=== PATIENT | female | born 1955 | race African-American/Black ===

== ENCOUNTER 2022-11-04 17:16 | Inpatient (IN) | payer OTHER ==
[~2022-11-04] VITALS: Ht 162.6 cm; Wt 73.7 kg
[2022-11-04] MEDS ORDERED: SODIUM CHLORIDE 0.9% 1,000 ML IV ONE (22:45)
[2022-11-04 22:55] LABS: BASOPHILS % 0.4 % (0.0-2.0); EOSINOPHILS % 0.1 % (0.0-5.0); HEMATOCRIT. 40.5 % (36.0-48.0); HEMOGLOBIN. 13.5 g/dL (12.0-16.0); LYMPHOCYTES % 36.6 % (20.0-50.0); MEAN CORPUSCULAR HEMOGLOBIN 27.7 pg (28.0-32.0); MEAN PLATELET VOLUME 9.5 fl (7.4-10.4); MONOCYTES % 6.7 % (2.0-8.0); NEUTROPHILS % 56.2 % (40.0-76.0); PLATELET 206 x1000/uL (130-400); RED BLOOD CELL COUNT 4.88 mill/uL (4.2-5.4); RED CELL DISTRIBUTION WIDTH 14.3 % (11.6-14.6)
[2022-11-04 23:01] LABS: CHLORIDE 102 mEq/L (98-107)
[2022-11-05] MEDS ORDERED: ONDANSETRON HCL 4MG/2ML INJ IV PRN (10:45)
[2022-11-05] MEDS ORDERED: CLONIDINE 0.1MG TABLET PO PRN (10:45)
[2022-11-05] MEDS ORDERED: DOCUSATE SODIUM 100MG CAPSULE PO PRN (10:45)
[2022-11-05] MEDS ORDERED: ACETAMINOPHEN 325MG TABLET PO PRN ×2 (10:45)
[2022-11-05] MEDS: ENOXAPARIN 40MG/0.4ML SYR SUBCUT SCH (11:00)
[2022-11-05 12:00] VITALS: BP 137/74
[2022-11-05] MEDS ORDERED: LOSA1TAB34 MT (12:19)
[2022-11-05] MEDS: MECLIZINE 25MG TABLET PO SCH ×2 (13:44→21:35)
[2022-11-05] MEDS: SODIUM CHLORIDE 0.9% INJ 3ML FLUSH IVF SCH ×2 (13:44→21:35)
[2022-11-05 16:00] VITALS: BP_SYST 121; BP_SYST 130; BP_SYST 141; BP_DIAS 69; BP_DIAS 73; BP_DIAS 82
[2022-11-05 17:07] LABS: CREATINE KINASE MB FRACTION 1.2 ng/mL (0.5-3.6)
[2022-11-05] MEDS ORDERED: LORAZEPAM 1MG TABLET PO NR (17:30)
[2022-11-05] MEDS: SODIUM CHLORIDE 0.9% 1,000 ML IV SCH (17:30)
[2022-11-05 20:00] VITALS: BP_SYST 111; BP_SYST 118; BP_SYST 119; BP_SYST 150; BP_DIAS 68; BP_DIAS 74; BP_DIAS 75; BP_DIAS 91
[2022-11-06] VITALS: BP 103/63
[2022-11-06 04:00] VITALS: BP 131/76
[2022-11-06] MEDS: SODIUM CHLORIDE 0.9% 1,000 ML IV SCH (05:50)
[2022-11-06 06:22] LABS: CHLORIDE 107 mEq/L (98-107)
[2022-11-06] MEDS: MECLIZINE 25MG TABLET PO SCH (06:28)
[2022-11-06] MEDS: SODIUM CHLORIDE 0.9% INJ 3ML FLUSH IVF SCH (06:28)
[2022-11-06 06:38] LABS: BASOPHILS % 0.5 % (0.0-2.0); EOSINOPHILS % 1.8 % (0.0-5.0); HEMATOCRIT. 34.6 % (36.0-48.0); HEMOGLOBIN. 11.6 g/dL (12.0-16.0); LYMPHOCYTES % 52.6 % (20.0-50.0); MEAN CORPUSCULAR HEMOGLOBIN 27.6 pg (28.0-32.0); MEAN CORPUSCULAR VOLUME 82.1 fL (81.0-99.0); MEAN PLATELET VOLUME 9.6 fl (7.4-10.4); MONOCYTES % 8.9 % (2.0-8.0); NEUTROPHILS % 36.2 % (40.0-76.0); PLATELET 174 x1000/uL (130-400); RED BLOOD CELL COUNT 4.22 mill/uL (4.2-5.4)
[2022-11-06 08:00] VITALS: BP_SYST 121; BP_SYST 123; BP_SYST 128; BP_DIAS 77; BP_DIAS 78; BP_DIAS 82
[2022-11-06] MEDS: ENOXAPARIN 40MG/0.4ML SYR SUBCUT SCH (11:00)
[2022-11-06 12:00] VITALS: BP 105/63
[2022-11-06 12:44] LABS: CLARITY URINE CLEAR (CLEAR); COLOR URINE YELLOW (YELLOW); KETONES URINE NEGATIVE (NEGATIVE); LEUKOCYTE ESTERASE URINE TRACE (NEGATIVE); NITRITE URINE POSITIVE (NEGATIVE); OCCULT BLOOD URINE NEGATIVE (NEGATIVE); PH URINE 6.5 (4.5-8.0); PROTEIN URINE NEGATIVE (NEGATIVE); SPECIFIC GRAVITY URINE 1.007 (1.005-1.030); UROBILINOGEN URINE 0.2 E.U./dL (0.2-1.0)
[2022-11-06] MEDS ORDERED: LEVOFLOXACIN 500MG TABLET PO NR (13:00)
[2022-11-06] MEDS ORDERED: LEVO-65 MT (13:00)
== END 2022-11-06 15:25 | disposition home or self-care (01) | DRG 74 ==
LOC: ER 17:55 → MICUSO 11-05 00:46 → 8WST 11-05 11:22
PROVIDERS: ADMIT Internal Medicine; ATTEND Internal Medicine
DX: G90.8 Other disorders of autonomic nervous system (principal); E87.6 Hypokalemia; Z20.822 Contact with and (suspected) exposure to COVID-19; I10 Essential (primary) hypertension; R07.9 Chest pain, unspecified; Z82.49 Family history of ischemic heart disease and other diseases of the circulatory system
CPT/HCPCS: 36415; 70551; 71045; 80048; 80053; 80076; 81003; 82550; 82553; 83880; 84484; 85025; 87426; 93005; 99285; J1650; J2405; J7030; J8597

== ENCOUNTER 2023-11-21 09:51 | Emergency (ER) | payer BC, MEDICARE, OTHER ==
[~2023-11-21] VITALS: Ht 162.6 cm; Wt 73.5 kg
[~2023-11-21 09:51] MED LIST: LEVO-65 MT; LOSA1TAB34 MT
[2023-11-21 10:01] VITALS: TEMP 98.2; O2SAT 99
[2023-11-21 11:30] VITALS: BP 163/82; PULSE 78; RESP 16
[2023-11-21] MEDS ORDERED: IBUPROFEN 600MG TABLET PO NR (11:30)
[2023-11-21] MEDS ORDERED: IBUP-2028 MT (12:42)
== END 2023-11-21 13:10 | disposition home or self-care (01) ==
LOC: ER 09:51
DX: M17.12 Unilateral primary osteoarthritis, left knee (principal); I10 Essential (primary) hypertension
CPT/HCPCS: 73562; 99283